=== PATIENT | female | born 1985 | race Caucasian/White ===

== ENCOUNTER 2017-05-16 13:58 | Outpatient (CLI) | payer OTHER ==
[2017-05-16 16:17] VITALS: BP 104/69
--- NOTE | 2017-05-17 00:39 | Ultrasound Report ---
FINAL REPORT EXAM: US OB LIMITED HISTORY: DANISH for dereased movement; variable TECHNIQUE: A limited OB sonogram was obtained for evaluation of the biophysical profile. FINDINGS: For tone, a score of 2 out of 2 was obtained. For breathing movements, a total score of 2 out of 2 was obtained. For movements, a total score of 2 out of 2 was obtained. For qualitative amniotic fluid volume, a score of 2 out of 2 was obtained. The total biophysical profile score is 8 out of 8. The heart rate is 134 BPM. IMPRESSION: Total biophysical profile score of 8 out of 8. heart is 134 BPM.
--- NOTE | 2017-05-17 00:43 | Ultrasound Report ---
FINAL REPORT EXAM: US OB BPP WO NON-STRESS HISTORY: DANISH for dereased movement; variable TECHNIQUE: A limited OB sonogram was obtained for evaluation of biophysical profile and amniotic fluid volume. FINDINGS: There is a single viable intrauterine in cephalic presentation with an estimated gestational age of 38 weeks, 3 days. The heart rate is 134 BPM. The DANISH is 11.6 cm which is normal. A complete survey of organs was not obtained. A biophysical profile was performed. The biophysical profile shows a score of 8 out of 8. IMPRESSION: Single viable IUP in cephalic presentation, 38 weeks 3 days. Biophysical profile score of 8 out of 8. Cephalic presentation. heart rate is 134 BPM.
== END 2017-05-16 16:20 | disposition home or self-care (01) ==
LOC: TRG 13:58
PROVIDERS: ATTEND Obstetrics & Gynecology
DX: O36.8130 Decreased fetal movements, third trimester, not applicable or unspecified (principal); O47.1 False labor at or after 37 completed weeks of gestation; Z3A.38 38 weeks gestation of pregnancy
CPT/HCPCS: 59025; 76815; 76819

== ENCOUNTER 2017-05-28 15:14 | Inpatient (IN) | payer OTHER ==
[2017-05-28] MEDS ORDERED: XYLOCAINE 2% INFILTRATI ONE ×2 (18:10→21:18)
[2017-05-28] MEDS ORDERED: BRETHINE SUB-Q PRN (18:10)
[2017-05-28] MEDS ORDERED: SUBLIMAZE IV PRN (18:10)
[2017-05-28] MEDS ORDERED: STADOL IV PRN (18:10)
[2017-05-28] MEDS ORDERED: POLYCILLIN/NS 2 GM/100 ML 2 GM/100 ML BAG IV ONE (18:10)
[2017-05-28] MEDS ORDERED: BRETHINE IVP PRN (18:10)
[2017-05-28] MEDS ORDERED: ePHEDrine SULFATE IV PRN (18:10)
[2017-05-28] MEDS ORDERED: MINERAL OIL PO PRN (18:10)
--- NOTE | 2017-05-28 18:17 | History and Physical Report ---
History of Present Illness Date of examination: 05/28/17 Date of admission: 05/28/17 Chief complaint: contractions History of present illness: 31 Y/O , with care at [facility], presents to Labor and delivery for C/O contractions. GBS Positive. care uneventful. Past History Past Surgical History: no surgical history [employer] History: abnormal PAP smear Family/Genetic History: none Social history: no significant social history - Obstetrical History Expected Date of Delivery: 06/19/17 Actual Gestation: 36 Week(s) 6 Day(s) : 4 Para: 2 Hx # Term Pregnancies: 2 Number of Pregnancies: 0 Spontaneous Abortions: 0 Induced : 1 Number of Living Children: 2 Medications and Allergies Allergies Allergy/AdvReac Type Severity Reaction Status Date / Time No Known Allergies Allergy Verified 05/28/17 15:47 Home Medications Medication Instructions Recorded Confirmed Last Taken Type Vit-Fe Fumar-FA [ 1 tab PO QDAY 05/16/17 05/28/17 05/28/17 09: 00 History Vitamin] 1 Review of Systems All systems: negative - Vital Signs Vital signs: Vital Signs Pulse BP 71 106/68 05/28/17 15:36 05/28/17 15:36 Temp Pulse Resp BP Pulse Ox 98.6 F 83 18 106/76 98 05/28/17 15:51 05/28/17 18:09 05/28/17 15:51 05/28/17 18:09 05/28/17 16:03 - Physical Exam Breasts: Positive: deferred Cardiovascular: Regular rate Lungs: Positive: Clear to auscultation Genitourinary (Female): Positive: normal external genitalia Vulva: both: normal Vagina: Positive: normal moisture Extremities: Positive: normal - Obstetrical FHR: category 1 Uterine Contraction Monitor Mode: External Cervical Dilatation: 5 (nurse exam) Cervical Effacement Percentage: 70 station: -3 Uterine Contraction Frequency (min): 3-5 min Uterine Contraction Pattern: Irregular Uterine Contraction Intensity: Moderate Results Result Diagrams: 05/28/17 18:30 All other labs normal. Assessment and Plan A: 36.6 weeks with advanced dilation P; Pitocin augmentation GBS prophylaxis Expect
[2017-05-28] MEDS ORDERED: PITOCin/NS 30 UNIT/500ML 30 UNITS/500 ML BAG IV SCH (19:00)
[2017-05-28] MEDS ORDERED: LACTATED RINGERS 1,000 ML IV SCH (19:00)
[2017-05-28 19:16] LABS: Hematocrit 36.1 % (30.3-42.9); Hemoglobin 11.8 gm/dl (10.1-14.3); Mean Corpuscular HGB Conc 33 % (30-34); Mean Corpuscular Hemoglobin 27 pg (28-32); Mean Corpuscular Volume 84 fl (79-97); Platelet Count 210 K/mm3 (140-440); Red Blood Count 4.32 M/mm3 (3.65-5.03); Red Cell Distribution Width 14.3 % (13.2-15.2)
--- NOTE | 2017-05-28 20:50 | Event Note ---
Date: 05/28/17 O: VE /-1, arom clear fluid, UC's every 3 min, CAT I tracing, Pit at 8 mu A: Active labor P: Expect
[2017-05-28] MEDS: PITOCin/NS 20 UNIT/1000ML DRIP 20 UNITS/1,000 ML BAG IV SCH ×2 (21:25→22:39)
[2017-05-28] MEDS ORDERED: LANSINOH TP PRN (21:48)
[2017-05-28] MEDS ORDERED: TYLENOL PO PRN (21:48)
[2017-05-28] MEDS: NORCO 5/325 PO PRN (21:58)
[2017-05-28] MEDS ORDERED: SODIUM CHLORIDE FLUSH SYRINGE 10 ML IV PRN (22:00)
--- NOTE | 2017-05-28 22:00 | Procedure Note ---
OB Delivery Note - Delivery Date of Delivery: 05/28/17 Surgeon: RHIANNA SALCEDO Estimated blood loss: 100cc - Vaginal Delivery presentation: vertex Delivery position: OA Intrapartum events: labor-<37 weeks Delivery induction: none Delivery augmentation: rupture of membranes, pitocin Delivery monitor: external FHT, external uterine Route of delivery: Delivery placenta: spontaneous Episiotomy: midline Delivery repair: vicryl Delivery comments: of a viable female 5# 6 oz on 05/28/2017 @ 2121 over ML episiotomy with local anesthesia. Apgars 8/9. Episiotomy repaired with 2-0 vicryl. Placenta delivered 3VCI. FF @ U. Mother and baby doing well. EBL 100cc. - Infant A at 1 minute: 8 at 5 minutes: 9 Gender: Female (5# 6oz)
[2017-05-28] MEDS ORDERED: AMPICILLIN/NS 1 GM/50 ML 1 GM/50 ML BAG IV SCH (22:14)
[2017-05-29] MEDS: MOTRIN PO SCH ×4 (00:03→23:42)
[2017-05-29] MEDS ORDERED: DERMOPLAST TP PRN (01:02)
[2017-05-29] MEDS ORDERED: TUCKS PAD TP PRN (01:05)
[2017-05-29 09:29] LABS: Hematocrit 31.2 % (30.3-42.9); Hemoglobin 10.2 gm/dl (10.1-14.3)
[2017-05-29] MEDS: NORCO 5/325 PO PRN ×2 (10:12→20:02)
--- NOTE | 2017-05-29 11:53 | Progress Note ---
Assessment and Plan PPD# 1 s/p -Doing well P: -Continue routine care -Anticipate discharge in 24 hours - Patient Problems (1) (normal spontaneous vaginal delivery) Current Visit: Yes Status: Acute Subjective - Subjective Date of service: 05/29/17 Principal diagnosis: PPD# 1 Interval history: Doing well, no issues Patient reports: appetite normal, voiding normally, pain well controlled, no dizzy ambulation, no nauseated : doing well Objective - Vital Signs Latest vital signs: Vital Signs Temp Pulse Resp BP BP Pulse Ox 05/29/17 05:46 20 05/29/17 04:02 98.0 F 64 18 100/61 97 05/29/17 00:03 16 05/29/17 00:00 97.6 F 68 16 116/62 98 05/28/17 22:50 68 109/68 05/28/17 22:20 65 119/74 05/28/17 21:50 84 133/77 05/28/17 20:50 77 106/70 05/28/17 20:20 75 116/55 05/28/17 19:31 97.5 F L 78 12 104/69 05/28/17 19:20 78 104/69 05/28/17 18:09 83 106/76 05/28/17 16:03 80 98 05/28/17 15:58 70 98 05/28/17 15:53 71 98 05/28/17 15:51 98.6 F 71 18 98 05/28/17 15:48 73 99 05/28/17 15:43 73 98 05/28/17 15:38 74 98 05/28/17 15:36 71 106/68 Intake and Output 05/28/17 05/29/17 05/29/17 23:59 07:59 15:59 Intake Total 154.167 360 Output Total 300 Balance 154.167 60 Intake: IV 154.167 PITOCin/NS 20 UNIT/1000ML 154.167 DRIP 20 units In 1,000 ml @ 125 mls/hr IV DIRECT GOMEZ Rx#:[id number] Oral 360 Output: Urine 300 Void 300 Other: Total, Intake Amount 120 Total, Output Amount 300 # Voids Void 2 Estimated Blood Loss 100 - Exam Abdomen: Present: normal appearance, soft. Absent: distention, tenderness, guarding, rigidity Uterus: Present: firm, fundal height below umbilicus. Absent: tenderness Extremities: Present: normal - Labs Labs: Abnormal lab results 05/28/17 Range/Units 18:30 MCH 27 L (28-32) pg
--- NOTE | 2017-05-29 11:54 | Discharge Summary ---
Providers - Providers Date of Admission: 05/28/17 19:50 Date of discharge: 05/30/17 Attending physician: MACKENZIE CHINCHILLA MD Primary care physician: MACKENZIE CHINCHILLA MD Hospitalization Reason for admission: active labor Delivery: Episiotomy: midline Laceration: none Other procedures: none complications: none Discharge diagnosis: IUP at term delivered [place] baby: female Hospital course: Uncomplicated course Condition at discharge: Good Disposition: DC-01 TO HOME OR SELFCARE - Discharge Diagnoses (1) (normal spontaneous vaginal delivery) Status: Acute Plan - Provider Discharge Summary Activity: no sex for 6 weeks, no heavy lifting 4 weeks, no strenuous exercise Diet: routine Additional instructions: [] Smoking cessation referral if applicable(refer to patient education folder for contact #) [] Refer to [facility] Booklet Call your doctor immediately for: * Fever > 100.5 * Heavy vaginal bleeding ( >1 pad per hour) * Severe persistent headache * Shortness of breath * Reddened, hot, painful area to leg or breast * Drainage or odor from incision. * Keep incision clean and dry at all times and follow doctor's instructions regarding bathing/showering - Follow up plan Follow up: MACKENZIE CHINCHILLA MD [Primary Care Provider] - 6 Weeks
[2017-05-29] MEDS ORDERED: Fluarix Quad 2017-2018(36 MOS+ IM ONE (12:00)
[2017-05-30] MEDS: NORCO 5/325 PO PRN ×2 (05:33→16:19)
[2017-05-30] MEDS: MOTRIN PO SCH ×2 (05:34→12:28)
[2017-05-30] MEDS ORDERED: BOOSTRIX IM ONE (06:00)
[2017-05-30 16:44] VITALS: BP 97/54
== END 2017-05-30 18:44 | disposition home or self-care (01) | DRG 775 ==
LOC: TRG 15:14 → LD 19:50 → OB 23:11
PROVIDERS: ADMIT Obstetrics & Gynecology; ATTEND Obstetrics & Gynecology
PROC: 10E0XZZ Delivery of Products of Conception, External Approach (ICD-10-PCS; principal; 2017-05-28)
PROC: 0W8NXZZ Division of Female Perineum, External Approach (ICD-10-PCS; 2017-05-28)
PROC: 3E0234Z Introduction of Serum, Toxoid and Vaccine into Muscle, Percutaneous Approach (ICD-10-PCS; 2017-05-28)
DX: O60.14X0 Preterm labor third trimester with preterm delivery third trimester, not applicable or unspecified (principal); Z37.0 Single live birth; Z3A.36 36 weeks gestation of pregnancy; Z23 Encounter for immunization; O99.824 Streptococcus B carrier state complicating childbirth
CPT/HCPCS: 36415; 59025; 85014; 85018; 85027; 86850; 86900; 86901; 90471; 90686; 90715; A6250; G0008; J0290; J2590; J7120

== ENCOUNTER 2020-02-19 08:07 | Inpatient (IN) | payer MEDICAID, OTHER ==
[2020-02-19] MEDS ORDERED: LACTATED RINGERS 500 ML IV ONE (09:22)
[2020-02-19] MEDS ORDERED: LACTATED RINGERS 1,000 ML IV SCH ×2 (10:00→15:30)
--- NOTE | 2020-02-19 11:08 | Ultrasound Report ---
ULTRASOUND BIOPHYSICAL PROFILE INDICATION: labor. COMPARISON: None available. FINDINGS: heart rate is 148 beats per minute. breathing movement = 2 Gross body movement = 2 tone = 2 Qualitative amniotic fluid volume = 2 IMPRESSION: biophysical profile = 11/03 Signer Name: Carter Bahena Jr, MD Signed: 02/19/2020 11:04 AM Workstation Name: [id number]
[2020-02-19 11:47] LABS: Bacteria,Urine 1+ /HPF (Negative); Bilirubin,Urine NEG (Negative); Blood,Urine LG (Negative); Color,Urine Yellow (Yellow); Mucus,Urine 1+ /HPF; Protein,Urine <15 mg/dL mg/dL (Negative); RBC,Urine < 1.0 /HPF (0.0-6.0); Urobilinogen,Urine < 2.0 mg/dL (<2.0)
[2020-02-19] MEDS ORDERED: AMPICILLIN/NS 2 GM/100 ML 2 GM/100 ML BAG IV ONE ×2 (12:59→13:00)
--- NOTE | 2020-02-19 14:31 | History and Physical Report ---
History of Present Illness Date of examination: 02/19/20 Date of admission: 02/19/20 09:22 Chief complaint: "I'm in pain" History of present illness: 34 y/o presents to [facility] OB triage at 36.6 wks with c/o uc. She initiated her pnc at [facility] [employer] at 9 6/7 wks and was co managed by [facility] r/t GDM. Pt has a hx of HSV II, migraines, PTD X 2, ASCUS with + HPV and GDM diet controlled. Neg surgical and social hx. Family hx of DM. Pt's GBS is unknown because her last visit to the clinic was at 33 wks. Pt took Valtrex starting at 36 wks for HSV and has requested a BTL after delivery. Past History Past Medical History: migraines Past Surgical History: no surgical history [employer] History: abnormal PAP smear, herpes Family/Genetic History: diabetes Social history: no significant social history - Obstetrical History Expected Date of Delivery: 03/12/20 Actual Gestation: 36 Week(s) 6 Day(s) : 5 Para: 3 Hx # Term Pregnancies: 1 Number of Pregnancies: 2 Spontaneous Abortions: 0 Induced : 1 Number of Living Children: 3 Medications and Allergies Allergies Allergy/AdvReac Type Severity Reaction Status Date / Time No Known Allergies Allergy Verified 05/28/17 15:47 Home Medications Medication Instructions Recorded Confirmed Last Taken Type Vit-Fe Fumar-FA [ 1 tab PO QDAY 05/16/17 05/28/17 05/28/17 09:00 History Vitamin] 1 Active Meds: Active Medications Lactated Ringer's (Lactated Ringers) 1,000 mls @ 125 mls/hr IV DIRECT GOMEZ Last Admin: 02/19/20 11:47 Dose: 125 mls/hr Documented by: Ampicillin Sodium (Ampicillin/Ns 1 Gm/50 Ml) 1 gm in 50 mls @ 100 mls/hr IV Q4HR GOMEZ; Protocol Review of Systems All systems: negative Eyes: deferred Ears, nose, mouth and throat: deferred Breasts: normal Genitourinary: normal appearance Rectal Exam: deferred - Vital Signs Vital signs: Vital Signs Pulse BP 74 99/58 02/19/20 08:46 02/19/20 08:46 Temp Pulse Resp BP Pulse Ox 98.7 F 79 18 101/58 98 02/19/20 14:18 02/19/20 14:23 02/19/20 14:18 02/19/20 14:19 02/19/20 14:23 - Physical Exam Breasts: Positive: normal Cardiovascular: Regular rate Lungs: Positive: Clear to auscultation Abdomen: Positive: normal appearance, soft, normal bowel sounds, other (gravid) Genitourinary (Female): Positive: normal external genitalia, normal perenium Vulva: both: normal Vagina: Positive: normal moisture Uterus: Positive: enlarged, normal contour, other (gravid) Adnexa: both: normal Anus/Rectum: Positive: normal perianal skin Extremities: Positive: normal - Obstetrical FHR: auscultation normal, category 1 Uterine Contraction Monitor Mode: External Cervical Dilatation: 5 Cervical Effacement Percentage: 80 station: -2 Uterine Contraction Frequency (min): irreg Uterine Contraction Pattern: Irregular Uterine Tone Measurement Phase: Resting Uterine Contraction Intensity: Mild Results Abnormal lab results 02/19/20 Range/Units 08:55 Urine WBC (Auto) 11.0 H (0.0-6.0) /HPF All other labs normal. Assessment and Plan A: IUP@ 36.6 wks GDM diet controlled, HSV II, ASCUS + HPV Migraines, GBS unknown P: Admit to L&D Continuous monitoring GBS prophylaxis FSBS AC & HS Anticipate
[2020-02-19] MEDS ORDERED: ePHEDrine SULFATE 50 MG/1 ML INJ IV PRN (15:30)
[2020-02-19] MEDS ORDERED: fentaNYL 100 MCG/2 ML INJ IV PRN (15:30)
[2020-02-19] MEDS ORDERED: LIDOCAINE (2%) 20 MG/1 ML VIAL 20 ML MDV INFILTRATI SCH (15:30)
[2020-02-19] MEDS ORDERED: BUTORPHANOL 2 MG/1 ML INJ IV PRN ×2 (15:30)
[2020-02-19] MEDS ORDERED: TERBUTALINE 1 MG/1 ML INJ SUB-Q PRN (16:00)
[2020-02-19] MEDS ORDERED: OXYTOCIN DRIP 30 UNITS/500 ML BAG IV SCH ×2 (16:00→21:00)
[2020-02-19] MEDS ORDERED: MINERAL OIL 30 ML ORAL LIQD PO PRN (16:00)
[2020-02-19 16:26] LABS: Hematocrit 30.2 % (30.3-42.9); Hemoglobin 10.2 gm/dl (10.1-14.3); Mean Corpuscular HGB Conc 34 % (30-34); Mean Corpuscular Volume 76 fl (79-97); Platelet Count 154 K/mm3 (140-440); Red Blood Count 3.98 M/mm3 (3.65-5.03); Red Cell Distribution Width 14.7 % (13.2-15.2)
[2020-02-19] MEDS ORDERED: NALOXONE 0.4 MG/1 ML INJ ONE (16:29)
[2020-02-19] MEDS ORDERED: AMPICILLIN/NS 1 GM/50 ML 1 GM/50 ML BAG IV SCH ×2 (17:00)
[2020-02-19] MEDS ORDERED: NALOXONE 0.4 MG/1 ML INJ IV ONE (17:00)
[2020-02-19] MEDS ORDERED: NALOXONE 2 MG/2 ML INJ IV ONE (17:00)
--- NOTE | 2020-02-19 17:37 | Event Note ---
Date: 02/19/20 Called to by nurse with pt's c/o sob, dizziness, and not feeling well. Resp were even and unlab. No sob or use of accessory muscles was noted. FHT 144 with mod carol + accels and no decels. 02 sat @ 99%, stable b/p. However, pt was noted to be drowsy and barely responsive to voice. 10L of O2 via FM was applied. Narcan was given as pt had Stadol prior to episode. Dr Villafuerte was notified. Within 10 min pt was talkative, asking for h20, and had no further complaints. She stated she was feeling much better.
[2020-02-19] MEDS ORDERED: OXYTOCIN 10 UNIT/1 ML INJ ONE (19:38)
[2020-02-19] MEDS: OXYTOCIN DRIP 30 UNITS/500 ML BAG IV SCH ×2 (19:57→20:34)
[2020-02-19] MEDS ORDERED: OXYTOCIN 10 UNIT/1 ML INJ IM ONE (19:58)
[2020-02-19] MEDS ORDERED: MAGNESIUM HYDROXIDE (MOM) ORAL LIQD UDC PO PRN (20:15)
[2020-02-19] MEDS ORDERED: LANOLIN/ZINC/DIMETHICONE (LANSINOH) 7 GM TP PRN ×2 (20:15)
[2020-02-19] MEDS ORDERED: PROMETHAZINE 25 MG RECT SUPP PR PRN (20:15)
[2020-02-19] MEDS ORDERED: METHYLERGONOVINE MALEATE 0.2 MG/ML VIAL IM PRN (20:15)
[2020-02-19] MEDS ORDERED: WITCH HAZEL/ GLYCERIN PAD TP PRN (20:15)
[2020-02-19] MEDS ORDERED: PROMETHAZINE 25 MG TAB PO PRN (20:15)
[2020-02-19] MEDS ORDERED: diphenhydrAMINE 25 MG CAP PO PRN (20:15)
[2020-02-19] MEDS ORDERED: ONDANSETRON 4 MG/2 ML INJ IV PRN (20:15)
[2020-02-19] MEDS ORDERED: IBUPROFEN 600 MG TAB PO PRN (20:15)
[2020-02-19] MEDS ORDERED: oxyCODONE /ACETAMINOPHEN 5-325MG TAB PO PRN (20:15)
[2020-02-19] MEDS ORDERED: BENZOCAINE/MENTHOL 20/0.5% TOP SPRAY 56 GM TP PRN (20:15)
--- NOTE | 2020-02-19 20:15 | Procedure Note ---
OB Delivery Note - Delivery Date of Delivery: 02/19/20 Surgeon: SAQIB NOBLES Estimated blood loss: 100cc - Vaginal Delivery presentation: vertex Delivery position: OA Route of delivery: Delivery placenta: spontaneous Delivery cord: 3 umbilical vessels Episiotomy: none Delivery laceration: none Anesthesia: none Delivery comments: Anterior shoulder delivered without difficulty. Baby bulb suctioned at the perineum and again after delivery. Delayed cord clamping and cut. Baby to the warmer. Placenta delivered spontaneously and was delivered in its entirety. Good hemostasis throughout. Mother and baby stable. - A at 1 minute: 8 at 5 minutes: 9 Gender: Female
[2020-02-20] MEDS: IBUPROFEN 600 MG TAB PO SCH ×4 (02:17→18:00)
[2020-02-20] MEDS ORDERED: PRENATAL VIT27-FE FUMARATE-FOLIC ACID VIT TAB PO SCH (10:00)
[2020-02-20 10:13] LABS: Hematocrit 29.5 % (30.3-42.9); Hemoglobin 9.5 gm/dl (10.1-14.3)
--- NOTE | 2020-02-20 12:26 | Discharge Summary ---
Providers - Providers Date of Admission: 02/19/20 09:22 Date of discharge: 02/21/20 Attending physician: SAQIB NOBLES Primary care physician: SAQIB NOBLES Hospitalization Reason for admission: labor Delivery: Episiotomy: none Laceration: none Other procedures: none complications: none Discharge diagnosis: other (anemia), delivery baby: female Hospital course: See admission H & P; OB delivery summary and PP progress notes Condition at discharge: Good Disposition: DC-01 TO HOME OR SELFCARE - Discharge Diagnoses (1) Status post normal vaginal delivery Status: Acute (2) Anemia Status: Acute Qualifiers: Anemia type: iron deficiency Comment: Asymptomatic Plan - Provider Discharge Summary Activity: routine, no sex for 6 weeks, no heavy lifting 4 weeks, no strenuous exercise Diet: other (Iron rich diet) Instructions: routine Additional instructions: [] Smoking cessation referral if applicable(refer to patient education folder for contact #) [] Refer to [facility]'s [facility] Booklet Call your doctor immediately for: * Fever > 100.5 * Heavy vaginal bleeding ( >1 pad per hour) * Severe persistent headache * Shortness of breath * Reddened, hot, painful area to leg or breast - Follow up plan Follow up: SAQIB NOBLES MD [Primary Care Provider] - 6 Weeks
[2020-02-21] MEDS: IBUPROFEN 600 MG TAB PO SCH ×2 (00:17→06:05)
[2020-02-21 12:48] VITALS: BP 109/54
== END 2020-02-21 13:05 | disposition home or self-care (01) | DRG 806 ==
LOC: APU 08:07 → TRG 08:07 → LD 09:22 → OBSVTOIN 09:22 → TRG 09:25 → LD 11:22 → OB 23:27
PROVIDERS: ADMIT Obstetrics & Gynecology; ATTEND Obstetrics & Gynecology
PROC: 10E0XZZ Delivery of Products of Conception, External Approach (ICD-10-PCS; principal; 2020-02-19)
DX: O98.32 Other infections with a predominantly sexual mode of transmission complicating childbirth (principal); O99.354 Diseases of the nervous system complicating childbirth; Z37.0 Single live birth; O98.52 Other viral diseases complicating childbirth; O24.420 Gestational diabetes mellitus in childbirth, diet controlled; O99.02 Anemia complicating childbirth; D70.8 Other neutropenia; G43.909 Migraine, unspecified, not intractable, without status migrainosus; B00.9 Herpesviral infection, unspecified; Z20.828 Contact with and (suspected) exposure to other viral communicable diseases; A63.0 Anogenital (venereal) warts; Z3A.36 36 weeks gestation of pregnancy; Z83.3 Family history of diabetes mellitus; Z79.899 Other long term (current) drug therapy
CPT/HCPCS: 36415; 76819; 81001; 82962; 85014; 85018; 85027; 86850; 86900; 86901; 87086; G0378; J0290; J0595; J2310; J2590; J3010; J7120; U0003

== ENCOUNTER 2020-06-20 11:46 | Day surgery (SDC) | payer OTHER ==
[~2020-06-20 11:46] MED LIST: LACTATED RINGERS 1,000 ML IV SCH; MIDAZOLAM 2 MG/2 ML INJ IV NR
--- NOTE | 2020-06-20 12:35 | History and Physical Report ---
History of Present Illness Date of examination: 06/20/20 Chief complaint: Multiparity HGSIL History of present illness: 34yo , HGSIL on cervical biopsy since for LEEP. Informed consent obtained in preop. 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: other (GABRIELA-3) Family/Genetic History: none Social history: no significant social history - Obstetrical History : 5 Medications and Allergies Allergies Allergy/AdvReac Type Severity Reaction Status Date / Time No Known Allergies Allergy Verified 06/18/20 08:41 Home Medications Medication Instructions Recorded Confirmed Last Taken Type Norethindrone-E.estradiol-Iron [Lo 1 tab PO DAILY 06/05/20 06/18/20 Unknown History Loestrin Fe 1-10 Tablet] Oxycodone HCl/Acetaminophen 1 each PO Q6H PRN 06/05/20 06/18/20 Unknown History [Oxycodon-Acetaminophen 2.5-325] methocarbamoL [Methocarbamol] 750 mg PO DAILY 06/05/20 06/18/20 Unknown History Active Meds: Active Medications Lactated Ringer's (Lactated Ringers) 1,000 mls @ 100 mls/hr IV DIRECT GOMEZ Stop: 06/20/20 23:59 Midazolam HCl (Midazolam 2 Mg/2 Ml Inj) 2 mg IV PREOP NR Stop: 06/20/20 20:00 Review of Systems All systems: negative (No 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 Assessment and Plan GABRIELA-2 Plan for LEEP Informed consent obtained *Patient was scheduled for bilateral tubal ligation changed her mind in the operating room secondary to her recent abdominoplasty and my inability to give her overall reassurance that her incisions would not be altered. Plan for Dustin in the office at her postop visit. Sarah Painting MD
[2020-06-20] MEDS ORDERED: FERRIC SUBSULFATE TOPICAL SOLN 8 ML TP ONE ×2 (12:37→14:26)
[2020-06-20] MEDS ORDERED: POTASSIUM IODIDE/IODINE (LUGOLS) 30 ML TP ONE (12:37)
[2020-06-20] MEDS ORDERED: LIDOCAINE 1.5% /EPINEPHRINE 1:200,000 AMP (5 ML) INFILTRATI ONE ×2 (12:38)
[2020-06-20] MEDS ORDERED: ACETAMINOPHEN 500 MG TAB PO SCH (12:42)
--- NOTE | 2020-06-20 12:43 | Anesthesia Consultation ---
Anesthesia Consult and Med Hx Date of service: 06/20/20 - Airway Anesthetic Teeth Evaluation: Good ROM Head & Neck: Adequate Mental/Hyoid Distance: Adequate Mallampati Class: Class II Intubation Access Assessment: Probably Good - Pre-Operative Health Status ASA Pre-Surgery Classification: ASA1 Proposed Anesthetic Plan: General - Pulmonary Hx Smoking: No Hx Respiratory Symptoms: No - Cardiovascular System Hx Hypertension: No - Central Nervous System CVA: No - Gastrointestinal Hx Gastroesophageal Reflux Disease: No - Endocrine Hx Liver Disease: No Hx Insulin Dependent Diabetes: No Hx Non-Insulin Dependent Diabetes: No (gDM now resolved) Hx Thyroid Disease: No - Other Systems Hx Obesity: No
--- NOTE | 2020-06-20 12:43 | Anesthesia Day of Surgery ---
Anesthesia Day of Surgery - Day of Surgery Patient Examined: Yes Patient H&P Reviewed: Yes Patient is NPO: Yes
[2020-06-20] MEDS ORDERED: CELECOXIB 200 MG CAP PO NR (13:00)
[2020-06-20] MEDS ORDERED: SCOPOLAMINE TRANSDERMAL PATCH 72 HR TD NR (13:00)
[2020-06-20] MEDS ORDERED: GABAPENTIN 300 MG CAP PO NR (13:00)
[2020-06-20] MEDS ORDERED: fentaNYL 100 MCG/2 ML INJ ONE (13:12)
[2020-06-20] MEDS ORDERED: propofoL 200 MG/20 ML VIAL IV ONE (13:13)
[2020-06-20] MEDS ORDERED: ePHEDrine SULFATE 50 MG/1 ML INJ ONE (13:56)
[2020-06-20] MEDS ORDERED: ONDANSETRON 4 MG/2 ML INJ ONE (13:59)
[2020-06-20] MEDS ORDERED: dexAMETHasone 20 MG/5 ML VIAL ONE (13:59)
[2020-06-20] MEDS ORDERED: SODIUM CHLORIDE 0.9% IRR 1,500 ML BOTTLE IR ONE (14:25)
--- NOTE | 2020-06-20 15:29 | Post Anesthesia Evaluation ---
- Post Anesthesia Evaluation Patient Participated: Yes Airway Patent: Yes Stable Respiratory Function: Yes Nausea/Vomiting: No Temp > 96.8F: Yes Pain Manageable: Yes Adequeate Hydration: Yes Anesthesia Complications: No
--- NOTE | 2020-06-20 15:32 | Operative Report ---
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 Aubree Painting Anesthesia: GETA Complications: None EBL: 150 mL Urine: 50 mL clear urine IV fluids: 400 mL Drain: None Specimen: LEEP cone biopsy sent to pathology Procedure: Patient was counseled in preop holding area about risks benefits possible complications as well as alternatives to the procedure. Having originally been scheduled for a LEEP and a bilateral tubal ligation I took the time to discuss with the patient the expected surgical entry for laparoscopic ports. Patient had recent abdominoplasty. I was unable to assure patient that there would be no interruption of her scarring and that her outcome may be different. At that time she decided for Mirena IUD as outpatient. She was then taken to the operating room where she received excellent general endotracheal anesthesia. She was then placed in the dorsolithotomy position. She was then prepped and draped in a sterile fashion. A timeout was verified. A red rubber catheter was used to straight cath the bladder with 50 cc clear urine obtained. A speculum was then placed in the vaginal vault. A loop cone biopsy was then taken using loop electrocautery with 80/80 setting. Hemostasis was achieved with the rollerball. Monsel solution was placed in the endocervical canal. The speculum was removed from the vaginal vault. Patient tolerated this procedure well. The specimen was sent to pathology. Patient was extubated taken to the recovery area in stable condition. Her was notified of her stable condition and intraoperative course at the completion of the procedure. She will be discharged home from PACU with 6 weeks of pelvic rest. EBL 150. All sponge needles and instrument counts are correct x2. There were no complications. Sarah Painting MD
[2020-06-20 15:50] VITALS: BP 106/60
== END 2020-06-20 15:45 | disposition home or self-care (01) ==
LOC: OR 11:46
PROVIDERS: ATTEND Obstetrics & Gynecology
DX: R87.613 High grade squamous intraepithelial lesion on cytologic smear of cervix (HGSIL) (principal); D64.9 Anemia, unspecified; E11.9 Type 2 diabetes mellitus without complications; Z79.899 Other long term (current) drug therapy; G43.909 Migraine, unspecified, not intractable, without status migrainosus; Z98.49 Cataract extraction status, unspecified eye; Z72.89 Other problems related to lifestyle; Z98.890 Other specified postprocedural states; Z83.3 Family history of diabetes mellitus
CPT/HCPCS: 57522; 81025; 88307; J1100; J2250; J2405; J2704; J3010; J7120; 88305